=== PATIENT | male | born 1950 | race African-American/Black ===

== ENCOUNTER → 2017-08-06 | Outpatient (CLI) | payer MEDICARE, MEDICAID | END | disposition home or self-care (01) | LOC: US 06:45 | PROVIDERS: ATTEND Internal Medicine Gastroenterology | DX: K76.0 Fatty (change of) liver, not elsewhere classified (principal); B18.2 Chronic viral hepatitis C | CPT/HCPCS: 76700 ==

== ENCOUNTER → 2018-08-04 | Outpatient (CLI) | payer MEDICARE, OTHER, MEDICAID | END | disposition home or self-care (01) | LOC: US 08:38 | PROVIDERS: ATTEND Internal Medicine Gastroenterology | DX: K76.0 Fatty (change of) liver, not elsewhere classified (principal); B18.2 Chronic viral hepatitis C | CPT/HCPCS: 76700 ==

== ENCOUNTER → 2019-03-04 | Outpatient (CLI) | payer MEDICARE, MEDICAID | END | disposition home or self-care (01) | LOC: US 11:26 | PROVIDERS: ATTEND Internal Medicine Gastroenterology | DX: B18.2 Chronic viral hepatitis C (principal) | CPT/HCPCS: 76700 ==